=== PATIENT | male | born 1995 | race African-American/Black ===

== ENCOUNTER 2018-10-13 20:11 | Emergency (ER) | payer OTHER ==
[2018-10-13] MEDS ORDERED: AMMONIA AROMATIC 1 EACH AMP IH ONE (20:18)
--- NOTE | 2018-10-13 20:26 | EDPHY ---
H & P Time Seen by Provider: 10/13/18 20:23 HPI/ROS: CHIEF COMPLAINT: Fall HISTORY OF PRESENT ILLNESS: 23-year-old male presents from the halfway after a fall. According to video foot itch, he intentionally put his foot through the railing of the stairs and then flung himself forward falling down a few stairs. Did not appear that he hit his head. Since the incident, he has had abnormal behavior. Sometimes he is talkative and other times he is hyperventilating. He is not answering many questions. He tells me that he has bad panic attacks, but I am unable to get further information from him. REVIEW OF SYSTEMS: complete 10 point ROS reviewed and is negative except for the noted elements in the HPI - Social History Additional Social History: in halfway x 2 wks - Physical Exam Exam: General Appearance: Eyes closed, answers only a limited number questions Head: Atraumatic, no swelling or tenderness Eyes: No conjunctival erythema, PERRLA, EOMI ENT, Mouth: no oral trauma, no bony tenderness Neck: Nontender, full range of motion without pain Respiratory: No chest wall tenderness, lungs clear bilaterally Cardiovascular: Regular rate and rhythm Abdomen: Abdomen is soft and nontender Skin: No lacerations, no abrasions Back: No midline T/L/S tenderness Extremities: Pelvis is stable and nontender; no extremity tenderness or deformity, full range of motion without pain Neurological: Alert, moves all extremities, does not follow commands Psychiatric: Anxious, hyperventilating at times Constitutional: Initial Vital Signs Temperature (C) 36.4 C 10/13/18 20:21 Heart Rate 99 10/13/18 20:21 Respiratory Rate 20 10/13/18 20:21 Blood Pressure 135/80 H 10/13/18 20:21 O2 Sat (%) 97 10/13/18 20:21 O2 Delivery Mode Room Air Allergies/Adverse Reactions: No Known Allergies Allergy (Unverified 10/13/18 20:20) Home Medications: Medication Instructions Recorded Acetaminophen [Tylenol] 10/13/18 Albuterol 5 mg/ml INH [Proventil] 10/13/18 guaiFENesin [Guaifenesin] 10/13/18 Medical Decision Making - Diagnostics Imaging Results: Imaging Impressions Head CT 10/13/18 20:41 Impression: Negative. No acute fracture or evidence of acute intracranial injury. Findings discussed with Emergency Department physician, Marisa Hobbs M.D., on October 13, 2018 at 2114. Imaging: Discussed imaging studies w/ curing bin operator Radiologist, I viewed and interpreted images myself ED Course/Re-evaluation: 2044: pt now talking more. h/o severe anxiety, on Xanex for 6 years, stopped Librium 2 days ago. Also fell and hit head 2 days ago, c/o severe ROWE. Neuro exam normal. CT head obtained and is normal. After CT scan, pt c/o left hip pain. Normal hip inspection, tender laterally, pain with ROM. Xrays reveal no fracture. Ibuprofen given. Ativan 1mg orally given on d/c. Albuterol inhaler given b/c pt felt the need for inhaler. No wheezing on exam. Differential Diagnosis: includes though not limited to ICH, fx, seizure, dislocation - Data Points Medications Given: Discontinued Medications Albuterol Sulfate (Proventil Inh Prepack) 1 mdi TAKEHOME EDNOW ONE Stop: 10/13/18 21:00 Last Admin: 10/13/18 21:02 Dose: 1 mdi Ibuprofen (Motrin) 600 mg PO EDNOW ONE Stop: 10/13/18 21:01 Last Admin: 10/13/18 21:04 Dose: 600 mg Lorazepam (Ativan) 1 mg PO EDNOW ONE Stop: 10/13/18 20:51 Last Admin: 10/13/18 20:55 Dose: 1 mg Departure - Departure Disposition: Law Enforcement/Court/Longterm Clinical Impression: Panic attack, Benzodiazepine dependence Head injury Qualifiers: Encounter type: initial encounter Qualified Code(s): S09.90XA - Unspecified injury of head, initial encounter Contusion of hip, left Qualifiers: Encounter type: initial encounter Qualified Code(s): S70.02XA - Contusion of left hip, initial encounter Condition: Good Instructions: Panic Attack (ED) Additional Instructions: I suggest that you take Xanex 1mg every 8 hours. Ibuprofen 600 mg 3 times daily while the pain persists. Referrals: Patient,NotPresent [Unknown] - As per Instructions
[2018-10-13] MEDS ORDERED: LORazepam 1 MG TAB PO ONE (20:50)
[2018-10-13] MEDS ORDERED: ALBUTEROL INH PREPACK MDI TAKEHOME ONE ×2 (20:58→20:59)
[2018-10-13] MEDS ORDERED: IBUPROFEN 600 MG TAB PO ONE (21:00)
[2018-10-13 21:20] VITALS: BP 136/84
== END 2018-10-13 21:20 ==
LOC: EDUNIT#
DX: S09.90XA Unspecified injury of head, initial encounter (principal); S70.02XA Contusion of left hip, initial encounter; W01.198A Fall on same level from slipping, tripping and stumbling with subsequent striking against other object, initial encounter; F41.9 Anxiety disorder, unspecified; Z79.899 Other long term (current) drug therapy